=== PATIENT | female | born 1960 | race Caucasian/White ===

== ENCOUNTER 2016-08-01 12:27 | Outpatient (CLI) | payer OTHER ==
[2016-07-14 03:44] VITALS: BP 139/77
== END 2016-08-01 12:30 ==
LOC: CARD 12:27
PROVIDERS: ATTEND Internal Medicine Cardiovascular Disease
DX: I48.91 Unspecified atrial fibrillation (principal)
CPT/HCPCS: 36415; 84443; 99213

== ENCOUNTER 2016-08-22 11:14 | Outpatient (CLI) | payer OTHER ==
[2016-07-14 03:44] VITALS: BP 139/77
== END 2016-08-22 11:20 ==
LOC: CARD 11:14
PROVIDERS: ATTEND Internal Medicine Cardiovascular Disease
DX: I48.91 Unspecified atrial fibrillation (principal)
CPT/HCPCS: 99213

== ENCOUNTER 2016-09-28 11:03 | Outpatient (CLI) | payer BC ==
[2016-07-14 03:44] VITALS: BP 139/77
== END 2016-09-28 11:04 ==
LOC: LAB 11:03
PROVIDERS: ATTEND Family Medicine
DX: R73.9 Hyperglycemia, unspecified (principal); Z00.00 Encounter for general adult medical examination without abnormal findings
CPT/HCPCS: 36415; 80061; 83036

== ENCOUNTER 2017-03-07 15:51 | Outpatient (CLI) | payer BC ==
[2016-07-14 03:44] VITALS: BP 139/77
--- NOTE | 2017-03-07 19:05 | Diagnostic Imaging Report ---
JALIL DOSS [facility] [address] [facility] [address] [address] Report Submission Date: Mar 07, 2017 6:19:23 PM CDT Patient Study Name: IRVIN APONTE Date: Mar 07, 2017 3:57:10 PM CDT Modality Type: CR Gender: F Description: LOWER EXTREMITY : 56 Institution: [facility] Physician: JALIL DOSS 3 views the right ankle Clinical history: Right ankle pain Findings: There is a nondisplaced fracture distal fibula, which is likely subacute to chronic. No definite acute fractures identified. Ankle joint alignment is normal. Impression: Healing nondisplaced distal fibular fracture. Electronically signed on Mar 07, 2017 6:19:23 PM CDT by: Juanito LUI
== END 2017-03-07 15:52 ==
LOC: RAD 15:51
PROVIDERS: ATTEND Physician Assistant
DX: S99.911A Unspecified injury of right ankle, initial encounter (principal); X58.XXXA Exposure to other specified factors, initial encounter; Y93.9 Activity, unspecified; Y99.9 Unspecified external cause status
CPT/HCPCS: 73610

== ENCOUNTER 2017-03-16 09:02 | Outpatient (CLI) | payer BC ==
[2016-07-14 03:44] VITALS: BP 139/77
--- NOTE | 2017-03-16 11:44 | Diagnostic Imaging Report ---
YVONNE NICK [facility] [address] [facility] [address] [id number] Report Submission Date: Mar 16, 2017 11:41:06 AM CDT Patient Study Name: IRVIN APONTE Date: Mar 16, 2017 9:07:57 AM CDT Modality Type: CR Gender: F Description: LOWER EXTREMITY : 56 Institution: [facility] Physician: YVONNE NICK Right ankle 3 views History: Followup fracture Findings: A distal fibula fracture is healed. There is no evidence of acute fracture, dislocation, or arthropathy. A small plantar heel spur is present. Impression: Healed distal fibula fracture. Electronically signed on Mar 16, 2017 11:41:06 AM CDT by: Collin LUI
== END 2017-03-16 10:00 ==
LOC: RAD 09:02
PROVIDERS: ATTEND Physician Assistant
DX: S82.831D Other fracture of upper and lower end of right fibula, subsequent encounter for closed fracture with routine healing (principal); X58.XXXA Exposure to other specified factors, initial encounter; Y93.9 Activity, unspecified; Y99.9 Unspecified external cause status
CPT/HCPCS: 73610

== ENCOUNTER 2017-10-01 11:03 | Outpatient (CLI) | payer BC ==
[2016-07-14 03:44] VITALS: BP 139/77
[2017-10-01 12:10] LABS: eGFR (African) > 60; eGFR (Non-African) > 60
== END 2017-10-01 11:04 ==
LOC: LAB 11:03
PROVIDERS: ATTEND Family Medicine
DX: Z00.00 Encounter for general adult medical examination without abnormal findings (principal)
CPT/HCPCS: 36415; 80053; 80061

== ENCOUNTER 2017-11-27 14:09 | Outpatient (CLI) | payer BC ==
[2016-07-14 03:44] VITALS: BP 139/77
[2017-11-27 14:47] LABS: eGFR (African) > 60; eGFR (Non-African) > 60
== END 2017-11-27 14:10 ==
LOC: LAB 14:09
PROVIDERS: ATTEND Family Medicine
DX: Z79.899 Other long term (current) drug therapy (principal)
CPT/HCPCS: 36415; 80053

== ENCOUNTER 2018-10-09 09:16 | Outpatient (CLI) | payer BC ==
[2016-07-14 03:44] VITALS: BP 139/77
[2018-10-09 10:00] LABS: eGFR (Non-African) > 60
== END 2018-10-09 09:18 ==
LOC: LAB 09:16
PROVIDERS: ATTEND Family Medicine
DX: Z00.00 Encounter for general adult medical examination without abnormal findings (principal)
CPT/HCPCS: 36415; 80053; 80061; 84443